=== PATIENT | female | born 1995 | race Caucasian/White ===

== ENCOUNTER 2017-09-11 17:35 | Emergency (ER) | payer MEDICAID ==
[~2017-09-11] VITALS: Ht 175.3 cm; Wt 112.8 kg
[2017-09-11] MEDS ORDERED: AZIT250T PO (19:23)
[2017-09-11] MEDS ORDERED: diphenhydrAMINE 25 MG/10 ML UD oral solution PO ONE (19:25)
[2017-09-11] MEDS ORDERED: azithromycin 250mg tablet PO ONE (19:25)
[2017-09-11] MEDS ORDERED: dexamethasone sod phosphate 10mg/ml inj PO ONE (19:25)
[2017-09-11 19:37] VITALS: BP 148/84
== END 2017-09-11 19:39 | disposition home or self-care (01) ==
LOC: ER 17:37
DX: J02.0 Streptococcal pharyngitis (principal); Z79.899 Other long term (current) drug therapy
CPT/HCPCS: 99284; J1100; Q0163